=== PATIENT | male | born 1975 | race Caucasian/White ===

== ENCOUNTER 2024-08-30 17:52 | Observation (INO) | payer MEDICARE, MEDICAID, SELFPAY ==
[2024-08-30] VITALS (53 sets, daily range): BP systolic 117–137; BP diastolic 62–89; PULSE 54–85; RESP 9–27; TEMP 36.2–36.4; O2SAT 93–98
--- NOTE | 2024-08-30 17:45 | RT.EKG_ITS ---
APPROVED REPORT Exam: Resting ECG Reason for Exam: CP SOPHIE Patient Location: E HR:67 bpm ECG Measurements Heart Rate 67 AXIS NV 154 P 31 QRSd 105 QRS -41 QT 378 T 28 QTc 400 Conclusion Sinus rhythm...normal P axis, V-rate 60- 99 Left anterior fascicular block...axis(240,-40), init forces inf Left [place] No acute ST changes
--- NOTE | 2024-08-30 17:55 | ED.GENADUL_ITS ---
Discharge Plan Disposition Patient Disposition: Admit to [facility] Condition: Fair Discharge Details Chief Complaint: Chest Pain Clinical Impression: Pancreatitis, acute Primary Care Provider: Unknown,Unknown ED Provider: Mateo Rouse Meds and New Rx's Prescriptions: No Action dextroamphetamine-amphetamine [Adderall XR] 20 mg capsule,extended release 24hr 20 mg PO QAM guanfacine 2 mg tablet 2 mg PO DAILY omeprazole 40 mg capsule,delayed release(DR/EC) 40 mg PO DAILY cholecalciferol (vitamin D3) [Vitamin D3] 50 mcg (2,000 unit) tablet 2,000 unit PO QDAY cyanocobalamin (vitamin B-12) [Vitamin B-12] 100 mcg tablet 100 mcg PO DAILY omega-3 fatty acids Capsule 1,000 mg PO DAILY HPI General Mode of arrival: ambulatory . Date/Time Provider Initiated Documentation: 08/30/24 17:54 . Limitations to Documentation: no limitations . Information obtained by: patient and RN notes reviewed . HPI Narrative: Patient presents to ED complaint of left-sided chest pain and shortness of darcie ath. Patient has been experiencing similar pain on and off for a couple of days but will go away and he thought it was more related to his anxiety. Today he has pretty much had the pain all day long just varying degrees of intensity. He is having some radiation to the left shoulder as well as down into the abdomen. Not really having back pain. He has had some diaphoresis but gets this on a re gular basis anyways. 1 episode of dry heaves today. Denies any leg pain or leg swelling. No history of blood clots. He has previously had high blood pressure but with weight loss he has not had to be on any medications. He does have a family history of early cardiac disease. He stopped smoking over 10 years ago. Pain has been worse this afternoon, a little bit pleuritic in nature, some incr eased shortness of breath which prompted him to come into ED. Related Data Home Medications ?Medication ?Instructions ?Recorded ?Confirmed cholecalciferol (vitamin D3) 50 2,000 unit PO QDAY 08/30/24 08/30/24 mcg (2,000 unit) tablet (Vitamin D3) cyanocobalamin (vitamin B-12) 100 100 mcg PO DAILY 08/30/24 08/30/24 mcg tablet (Vitamin B-12) dextroamphetamine-amphetamine ER 20 mg PO QAM 08/30/24 08/30/24 20 mg 24hr capsule,extend release (Adderall XR) guanfacine 2 mg tablet 2 mg PO DAILY 08/30/24 08/30/24 omega-3 fatty acids 1,000 mg PO DAILY 08/30/24 08/30/24 omeprazole 40 mg capsule,delayed 40 mg PO DAILY 08/30/24 08/30/24 release Allergies Allergy/AdvReac Type Severity Reaction Status Date / Time trazodone AdvReac Intermediate Hives Verified 08/30/24 18:01 Exam Narrative Exam Narrative: Const: Obese male in NAD but does appear uncomfortable. VS per triage. HEENT: NC/AT. Normal facial exam. Neck: Supple. Trachea midline. Lungs: Normal respiratory effort. Lungs are clear. Cor: RRR without murmur. Good radial pulses. GI: Soft/ND/NT. Neuro: A+O x 3. Normal speech, mentation, gait. Cranial nerves II - XII grossly intact. No gross motor or sensory deficit. Ext: No C/C/E. No calf tenderness. Medical Decision Making Patient presents to ED with left-sided chest pain radiating to left shoulder, varying in intensity during the course of the day but worse this afternoon. A little pleuritic in nature. Appears uncomfortable and complains of feeling short of breath. Has had milder symptoms that were intermittent over the last few days that he thought was anxiety related. Denies any fever or cough. Denies any leg pain or leg swelling. EKG from triage is sinus rhythm with left anterior fascicular block no acute ST changes per my read. Patient is overweight and has family history of cardiac disease so must consider ACS. Little bit of pleuritic component to his pain and sensation of shortness of breath so also consider PE. Some radiation of pain into the abdomen and is chest pain is lower left in nature. Consider GI source. IV established and patient placed on monitor. Aspirin and nitroglycerin ordered. Laboratory studies including D-dimer, troponin and lipase ordered in addition to standard CBC and CMP. Patient's laboratory studies with normal white count and hemoglobin. Coags are normal but D-dimer is elevated at 689. Chemistries and kidney function are normal. Liver function is normal. Lipase however is elevated to 282. Initial troponin is normal. On reevaluation patient states he feels a little better but is still having discomfort. Given the elevated lipase consider pancreatitis. Given elevated D-dimer consider PE. Morphine ordered for pain and CTA of chest with CT abdomen pelvis ordered. 08:30 - Patient's repeat troponin remains normal. CT scan of the chest shows no evidence of pulmonary emboli. Incidentally found to have a thyroid nodule which will need follow-up as outpatient. Also found to have a solitary lung nodule. I have made patient aware of both. CT of the abdomen shows no acute process and specifically a normal-appearing pancreas. Patient does report pain is better though still present despite morphine. He is now however quite nauseated and dry heaving. Will dose with ondansetron. Will make him n.p.o. and start IV fluids. I will repeat a third troponin and if negative will plan discussion with hospitalist for admission for acute pancreatitis. I am going to add triglyceride and lipid profile given his pancreatitis. 22:15 - Patient had return of pain and was given more morphine. His third troponin has come back negative. Triglycerides and cholesterol not significantly elevated. Discussed with hospitalist for admission for n.p.o. status, pain control, IV hydration. Lab Data Lab results reviewed: Yes I reviewed the patient's lab results. Lab results narrative: see [facility] ECG Data Attestation: I personally reviewed and interpreted this ECG (s) as follows: Prior ECG tracings: not available for review Interpretation: see EKG/[facility] All Active Problems (Updated 08/30/24 @ 22:23 by Mateo Rouse MD) Pancreatitis, acute (Acute) Medical History (Updated 08/30/24 @ 22:23 by Mateo Rouse MD) ADHD Anxiety Surgical History (Updated 08/30/24 @ 19:01 by Mateo Rouse MD) S/P cholecystectomy H/O shoulder surgery S/P gastric bypass Social History (Updated 08/30/24 @ 19:01 by Mateo Rouse MD) Smoking/Tobacco Use Status: Former Tobacco Use Smoking risk assessment performed?: Yes Alcohol Intake: current Alcohol Intake frequency: holidays/special occasions only Drug use: Never Substance use type: does not use Housing: house Do you feel safe at home: Yes Do you feel safe in your relationship?: Yes Additional Social history: at side, very supportive
[2024-08-30 18:20] LABS: Abs Immature Grans 0.02 10^3/uL (0.0-0.06); Absolute Basophil Count 0.04 10^3/uL (0.0-0.2); Absolute Eosinophil Count 0.26 10^3/uL (0.0-0.7); Absolute Lymphocyte Count 2.23 10^3/uL (1.2-3.4); Absolute Monocyte Count 0.61 10^3/uL (0.1-0.8); Absolute Neutrophil Count 4.82 10^3/uL (1.2-6.7); Basophils % 0.5 %; Eosinophils % 3.3 %; HCT 48.7 % (40.0-50.0); HGB 16.1 g/dL (13.5-17.5); Immature Grans % 0.3 %; Lymphocytes % 27.9 %; MCH 29.5 pg (27.0-33.0); MCHC 33.1 % (32.0-36.0); MCV 89 fL (80-95); MPV 10.4 fL (8.0-11.0); Monocytes % 7.6 %; Neutrophils % 60.4 %; Platelet Count 187 10^3/uL (130-400); RBC 5.46 10^6/uL (4.36-5.78); RDW 13.5 % (11.8-14.1); RDW-SD 43.8 fL; WBC 7.98 10^3/uL (4.4-10.8)
[2024-08-30 18:34] LABS: PTT Activated 27.2 sec (20.6-30.2); Prothrombin Time 10.5 sec (9.1-11.1)
[2024-08-30] MEDS: Aspirin 81 MG CHEW 324 MG CH (18:35)
[2024-08-30 18:38] LABS: ALT 47 U/L (16-63); AST 31 U/L (15-37); Albumin 3.9 g/dL (3.4-5.0); Alkaline Phosphatase 92 U/L (46-116); Anion Gap 5.1 mmol/L (3-11); BUN 10 mg/dL (7-18); Bilirubin, Total 0.6 mg/dL (0.2-1.0); CO2 31.9 mmol/L (21.0-32.0); CREATININE 0.9 mg/dL (0.70-1.30); Calcium 9.3 mg/dL (8.5-10.1); Chloride 106 mmol/L (98-107); Estimated GFR 105.35 (mL/min/1.73m2); Glucose 109 mg/dL (74-106); Lipase 282 U/L (<78); Magnesium 1.8 mg/dL (1.8-2.4); Potassium 4.2 mmol/L (3.5-5.1); Sodium 143 mmol/L (136-145); Total Protein 7.8 g/dL (6.4-8.2); Troponin I 8 ng/L (<or=76)
[2024-08-30 18:45] LABS: D-Dimer 689 ng/mlFEU (<500)
--- NOTE | 2024-08-30 18:45 | DI.CT_ITS ---
Exam(s) CT CHEST PE ABD PELVIS W EXAM: CT CHEST PE ABD PELVIS W CLINICAL HISTORY: CP, Abd Pain, SOB. TECHNIQUE: Imaging Protocol: Axial CT angiography was performed with multi-slice acquisition and mu lti-planar and/or 3D reconstructions. Computer aided detection (CAD) was utilized. CONTRAST MATERIAL: Intravenous: Omnipaque 350contrast volume:100 mL COMPARISON: No exams were available for comparison FINDINGS: CHEST: Tracheobronchial tree: Patent where visualized. No evidence of bronchiectasis. Pulmonary parenchyma: No consolidation or dominant measurable mass. No architectural distortion. Ther e is a 3 mm nodule in the right lower lobe (series 16, image 105). Pulmonary Arteries: No large central pulmonary embolism is present. Mediastinum and Yennifer: No dominant adenopathy or fluid collection. The esophagus is unremarkable. Visualized thyroid gland: Unremarkable. Pleura: No effusion or pneumothorax. Heart: The heart is not dilated. No coronary artery calcifications are seen. No pericardial effusion. Aorta: Thoracic aorta non-dilated. No evidence of dissection. Bones: Within normal limits for the patient's age. Soft tissues: There is bilateral gynecomastia. ABDOMEN: Liver: Normal density. No measurable mass. Portal, Superior Mesenteric, and Splenic Veins: Unremarkable. Gallbladder and Biliary Tract: Status post cholecystectomy. There is no biliary ductal dilatation. Pancreas: Normal density, no abnormal calcifications or inflammatory process. Spleen: Normal. Adrenals: No masses seen. Kidneys: Normal size, contour and axis. There is a 2 mm nonobstructing stone in the lower pole of the left kidney. There are cysts seen in the left kidney. They are simple. No follow-up is recommende d. The largest measures 5.5 cm. Abdominal Aorta: Abdominal portion non-dilated. Mild atherosclerotic calcification is present. Bowel: Mild diverticulosis of the colon. No evidence of acute diverticulitis. No bowel wall thicken ing or obstruction. Postsurgical changes are seen in the stomach. Peritoneal Cavity: No ascites, collection or mesenteric inflammatory response. No free air. Lymph Nodes: Within normal limits. Bones: Within normal limits for the patient's age. Soft Tissues: There are fat containing midline supraumbilical anterior abdominal wall hernias. There also bilateral fat containing inguinal hernias. PELVIS: Bladder: There is a tiny 1-2 mm density in the dependent portion of the urinary bladder which may rep resent a passed stone. The urinary bladder is otherwise unremarkable. Reproductive Organs: Unremarkable as visualized. Lymph Nodes: Within normal limits. Bones: Within normal limits. IMPRESSION: 1. Left nephrolithiasis without hydronephrosis. 2. Question of a tiny 1-2 mm density in the dependent portion of the urinary bladder which may repres ent a passed stone. 3. Colonic diverticulosis without evidence of acute diverticulitis. 4. Multiple fat containing anterior abdominal wall hernias and bilateral fat containing inguinal deangelo ias. 5. 3 mm right lower lobe pulmonary nodule. Solid nodules smaller than 6 mm do not require routine follow-up in all patients with high clinical r isk; however, some nodules smaller than 6 mm with suspicious morphology, upper lobe location, or both may warrant follow-up at 12 months (grade 2A; weak recommendation, high-quality evidence). (Moni et al., 2017) Single solid noncalcified nodules. ???Solid nodules smaller than 6 mm (those 5 mm or smaller) do not require routine follow-up in patients at low risk (grade 1C; strong recommendation, low- or very-low- quality evidence). (Moni et al., 2017) 6. No acute pulmonary process. 7. No evidence of a pulmonary embolism, thoracic aortic aneurysm or dissection within the limits of t he examination. 8. The preliminary [facility] report was reviewed. RADIATION DOSE DELIVERED: 1,656.14mGy.cm Total DLP DATA REPOSITORY: All CT scans at this facility are submitted to the National Radiology Data Registry (NRDR) Dose Index Registry (DIR) with the [employer] (A[employer]). RADIATION OPTIMIZATION: All CT scans at this facility use at least one of these dose optimization te chniques: automated exposure control; mA and/or kV adjustment per patient size (includes targeted exa ms where dose is matched to clinical indication); or iterative reconstruction.
[2024-08-30] MEDS: MORPHine 4 MG/ML SYR IVP (19:13)
[2024-08-30] MEDS: Normal Saline 500 ML IV (19:13)
[2024-08-30] MEDS: Omnipaque 350 MG/ML 100 ML BTL IJ (19:20)
[2024-08-30] MEDS: Normal Saline - Diluent 50 ML VIAL IJ (19:21)
[2024-08-30 19:31] LABS: Troponin I 5 ng/L (<or=76)
--- NOTE | 2024-08-30 20:18 | DI.[facility]_ITS ---
Addendum created by William Montoya DO on 08/30/2024 8:43:29 PM EDT: Noted in body of the report but not included in impression is the presence of asymmetric gynecomastia, greater on the right. Correlate clinically and if indicated with imaging which could include ultrasound annual mammography. Initial report created on 08/30/2024 8:18:14 PM EDT: PROCEDURE INFORMATION: Exam: CTA Chest With Contrast Exam date and time: 08/30/2024 7:22 PM Age: 49 years old Clinical indication: Other: Cp, abd pain, SOB TECHNIQUE: Imaging protocol: Computed tomographic angiography of the chest with contrast. Exam focused on the arteries. 3D rendering (Not supervised by radiologist): MIP and/or 3D reconstructed images were created by the technologist. Contrast material: OMNIPAQUE 350; Contrast volume: 100 ml; Contrast route: INTRAVENOUS (IV); COMPARISON: No relevant prior studies available. FINDINGS: Pulmonary arteries: Main pulmonary artery normal in caliber. No pulmonary artery filling defects. Aorta: No aortic aneurysm or dissection. Thyroid: There is substernal extension of left thyroid lobe and a 3 cm nodule is demonstrated inferiorly in left lobe. Lungs: No parenchymal consolidation. 5 mm nodule in basilar right lower lobe, 16/105 Pleural spaces: Unremarkable. No pneumothorax. No pleural effusion. Heart: Heart is top-normal in size. Heart RV/LV ratio: 0.92. Coronary arteries: No coronary artery calcification. Lymph nodes: Unremarkable. No enlarged lymph nodes. Bones/joints: Prior surgery involving left humeral head.The spine demonstrates mild to moderate degenerative changes at multiple levels. Soft tissues: Asymmetric gynecomastia, more prominent on the right. IMPRESSION: 1. No pulmonary artery embolism demonstrated. 2. 5 mm nodule inferiorly in right lower lobe does not require follow-up unless patient considered at increased risk for developing lung cancer, in which case surveillance CT could be performed in 12 months following 2017 Fleischner criteria. 3. 2 cm nodule in inferior aspect left thyroid lobe. Further evaluation with thyroid ultrasound is warranted. PROCEDURE INFORMATION: Exam: CT Abdomen And Pelvis With Contrast Exam date and time: 08/30/2024 7:22 PM Age: 49 years old Clinical indication: Other: Cp, abd pain, SOB TECHNIQUE: Imaging protocol: Computed tomography of the abdomen and pelvis with contrast. Contrast material: OMNIPAQUE 350; Contrast volume: 100 ml; Contrast route: INTRAVENOUS (IV); COMPARISON: No relevant prior studies available. FINDINGS: Liver: Liver normal in size. No mass. Gallbladder and biliary ducts: Cholecystectomy. No biliary ductal dilatation. Pancreas: Normal. No ductal dilation. Spleen: Normal. No splenomegaly. Adrenal glands: Normal. No mass. Kidneys and ureters: Homogeneous enhancement of renal parenchyma. 5.5 cm simple cyst extends exophytically from the lower pole of left kidney. Stomach and bowel: Prior gastric bypass. No dilated segments of small bowel or colonic dilatation. There are a few, scattered colonic diverticula Appendix: No evidence of appendicitis. Intraperitoneal space: Unremarkable. No free air. No significant fluid collection. Vasculature: No aortic aneurysm or dissection. Lymph nodes: Unremarkable. No enlarged lymph nodes. Urinary bladder: Unremarkable as visualized. Reproductive: Unremarkable as visualized. Bones/joints: Unremarkable. No acute fracture. Soft tissues: There is a fat containing left supraumbilical ventral hernia measuring 8 cm. A right periumbilical fat containing hernia measures just under 5 cm. Moderate size bilateral fat containing inguinal hernias. IMPRESSION: 1. No acute findings. 2. Several nonemergent findings. Dictated and Authenticated by: William Montoya MD. Orderin Nasim Galindo MD
[2024-08-30] MEDS: Ondansetron 4 MG/2 ML VIAL IVP (20:53)
[2024-08-30] MEDS: Lactated Ringers 1,000 ML 125 ML IV (20:53)
[2024-08-30 21:07] LABS: Calculated LDL 99 mg/dL (<100); Cholesterol 178 mg/dL (<200); HDL Cholesterol 57 mg/dL (>or=40); Triglyceride 112 mg/dL (<150)
[2024-08-30 21:45] LABS: Troponin I 7 ng/L (<or=76)
[2024-08-30] MEDS: MORPHine 10 MG/ML VIAL 6 MG IVP (21:50)
--- NOTE | 2024-08-30 22:27 | W.PM.HP.N ---
Date of service: 08/30/24 Time of Service: 22:27 Assessment and Plan Assessment and plan (1) Pancreatitis, acute: Status: Acute Assessment and plan: continue with IVF/pain meds/npo. Lipase ordered for am (2) Anxiety: Assessment and plan: restart home meds when tolerating PO (3) Thyroid nodule: Status: Deleted Assessment and plan: thyroid usn. Will also order tsh/FT4 (4) Left leg pain: Status: Resolved Assessment and plan: rule out dvt with BLE usn, more for completeness (5) S/P gastric bypass: Assessment and plan: add thiamine History of Present Illness History of Present Illness Chief Complaint: chest pain Narrative: 49-year-old gentleman who presented to the ED with left-sided chest pain which then radiated to his right side. Workup in the ED did not show any elevations in his troponins and his EKG was within normal limits. While he was in the ED though, laboratory work was indicative of a possible pancreatitis. Per [place] criteria, he would need an elevation of his lipase greater than 3 times normal, pain consistent with pancreatitis, and imaging indicative of pancreatitis. From what I can tell the patient only has 1 of these but we will admit him nevertheless. Patient states that his pain did improve with morphine. Patient denies significant alcohol use. He does endorse significant weight loss of late. Weight loss has been intentional. Patient states that he had a cardiac workup at [facility] approximately 5 years ago with a stress test as well as an echocardiogram but no cardiac cath. Patient also endorses left lower extremity calf pain. While he was in the ED an elevation in his D-dimer was noted and a CT chest was negative for PE. Other diagnostic values his white count was within normal limits D-dimer as mentioned was 689 glucose was 109 lipase 282 and triglycerides were within normal limits at 112. In terms of imaging chest abdomen and pelvis CT scan showed no PE, it did mention a 5 mm nodule inferior in the right lower lobe. The 2 cm nodule in the inferior aspect of the left thyroid lobe and a recommendation for thyroid ultrasound was noted. A TSH was not ordered. Patient will be admitted at the request of the ED. Review of Systems All systems reviewed & are unremarkable except as noted in HPI and below PFSH All Active Problems (Updated 09/02/24 @ 00:00 by TED FERGUSON) Pancreatitis, acute (Acute) Medical History (Updated 09/02/24 @ 00:00 by TED FERGUSON) ADHD Anxiety Surgical History (Updated 08/30/24 @ 19:01 by Mateo Rouse MD) S/P cholecystectomy H/O shoulder surgery S/P gastric bypass Social History (Updated 08/30/24 @ 19:01 by Mateo Rouse MD) Smoking/Tobacco Use Status: Former Tobacco Use Smoking risk assessment performed?: Yes Alcohol Intake: current Alcohol Intake frequency: holidays/special occasions only Drug use: Never Substance use type: does not use Housing: apartment Do you feel safe at home: Yes Do you feel safe in your relationship?: Yes Additional Social history: at side, very supportive Meds Allergies and Home Medications Allergies Allergy/AdvReac Type Severity Reaction Status Date / Time trazodone AdvReac Intermediate Hives Verified 08/30/24 18:01 Home Medications ?Medication ?Instructions ?Recorded ?Confirmed ?Type cholecalciferol (vitamin D3) 50 2,000 unit PO QDAY 08/30/24 08/30/24 History mcg (2,000 unit) tablet (Vitamin D3) cyanocobalamin (vitamin B-12) 100 100 mcg PO DAILY 08/30/24 08/30/24 History mcg tablet (Vitamin B-12) dextroamphetamine-amphetamine ER 20 mg PO QAM 08/30/24 08/30/24 History 20 mg 24hr capsule,extend release (Adderall XR) guanfacine 2 mg tablet 2 mg PO DAILY 08/30/24 08/30/24 History omega-3 fatty acids 1,000 mg PO DAILY 08/30/24 08/30/24 History omeprazole 40 mg capsule,delayed 40 mg PO DAILY 08/30/24 08/30/24 History release Exam Narrative Exam Narrative: HEENT-NCAT MMM EOMI PERRLA NECK-NO LAD NO JVD CV-RRR NO MRG DISTANT PULM-CTAB NO AMU ABD-SNTNDBSA NO TTP ON MY EXAM EXT-NO CCE BILAT DP/PT INTACT NEURO-NONFOCAL PSYCH-AAOX3 CAN GIVE LINEAR HISTORY Results Labs 08/31/24 06:25 08/31/24 06:25 Labs: Laboratory Results - last 24 hr 08/30/24 08/30/24 08/30/24 18:08 19:06 21:06 WBC 7.98 RBC 5.46 Hgb 16.1 Hct 48.7 MCV 89 MCH 29.5 MCHC 33.1 RDW 13.5 Plt Count 187 MPV 10.4 Immature Gran % 0.3 Neutrophils % 60.4 Lymphocytes % 27.9 Monocytes % 7.6 Eosinophils % 3.3 Basophils % 0.5 Nucleated RBC % 0.0 Absolute Neutrophils 4.82 Absolute Lymphocytes 2.23 Absolute Monocytes 0.61 Absolute Eosinophils 0.26 Absolute Basophils 0.04 PT 10.5 INR 1.0 APTT 27.2 D-Dimer 689 H Sodium 143 Potassium 4.2 Chloride 106 Carbon Dioxide 31.9 Anion Gap 5.1 BUN 10 Creatinine 0.9 Est GFR (CKD-EPI 2020) 105.35 Glucose 109 H Calcium 9.3 Magnesium 1.8 Total Bilirubin 0.6 AST 31 ALT 47 Alkaline Phosphatase 92 Troponin I 8 5 7 Total Protein 7.8 Albumin 3.9 Triglycerides 112 Total Cholesterol 178 LDL Cholesterol, Calc 99 HDL Cholesterol 57 H Lipase 282 H Last Vital Signs Temp 36.4 C L 08/30/24 17:56 Pulse 62 08/30/24 21:40 Resp 12 08/30/24 21:40 BP 120/71 08/30/24 21:31 Pulse Ox 96 08/30/24 21:40 Time Spent Time spent with Patient: <40 minutes Time was spent: preparing to see the patient(eg.review tests), obtaining and/or reviewing separately otained hiistory, ordering medications,tests, procedures, referring, communicating with other health occasional caregiver, indepentently interpreting results, counseling the patient and care coordination
--- NOTE | 2024-08-30 22:46 | W.PC.ACHO ---
Registration Status: Primary Language: Preferred Language: ED Information & Data Chief Complaint Chest Pain 08/30/24 18:14 Chief Complaint Chest Pain 08/30/24 17:56 Triage Note 5/10 CP radiates to left 08/30/24 17:56 shoulder to left neck, started this AM pain has intensified, with SOB. Medical / Surgical History (Last Updated 08/30/24 @ 19:02 by Mateo Rouse MD) ADHD Anxiety (Last Updated 08/30/24 @ 19:01 by Mateo Rouse MD) S/P cholecystectomy H/O shoulder surgery S/P gastric bypass Most Recent Vital Signs Temperature 36.4 C L 08/30/24 17:56 Temperature Source Tympanic 08/30/24 17:56 Pulse 62 08/30/24 21:40 Pulse 63 08/30/24 21:40 Respiratory Rate 12 08/30/24 21:40 Respiratory Effort Normal, Non-Labored, Short of Breath 08/30/24 18:14 Respiratory Depth Normal 08/30/24 18:14 Respiratory Pattern Normal 08/30/24 18:14 Blood Pressure 120/71 08/30/24 21:31 Blood Pressure Mean 84 08/30/24 21:31 Pulse Oximetry 96 08/30/24 21:40 Oxygen Delivery Method Room Air 08/30/24 17:56 Oxygen Flow Rate 0 08/30/24 17:56 Pain Level 6 08/30/24 21:50 Allergies trazodone Adverse Reaction (Intermediate, Verified 08/30/24 18:01) Hives Precautions Isolation Standard precaution 08/30/24 18:14 Active Medications Generic Name Dose Route Start Last Admin Trade Name Deepti PRN Reason Stop Dose Admin Ringer's Solution 1,000 mls @ 125 mls/hr 08/30/24 20:45 08/30/24 20:53 IV 125 mls/hr INFUSION JAMIE Administration Iohexol 100 ml 08/30/24 19:30 08/30/24 19:20 Omnipaque 350 Mg/Ml 100 Ml Btl IJ 09/29/24 23:59 100 ml DIRECTED JAMIE Administration Sodium Chloride 50 ml 08/30/24 19:30 08/30/24 19:21 Normal Saline - Diluent 50 Ml Vial IJ 50 ml .FOR DI USE JAMIE Administration IV IV Catheter Type [Right Peripheral IV Antecubital] IV Catheter Gauge [Right 18 Antecubital] Diet Orders Category Date Time Status npo [Nothing Per Oral] [DIET] Nutrition 08/30/24 Dinner Active Diagnostics 08/30/24 08/30/24 08/30/24 Range/Units 21:06 19:06 18:08 WBC 7.98 (4.4-10.8) 10^3/uL RBC 5.46 (4.36-5.78) 10^6/uL Hgb 16.1 (13.5-17.5) g/dL Hct 48.7 (40.0-50.0) % MCV 89 (80-95) fL MCH 29.5 (27.0-33.0) pg MCHC 33.1 (32.0-36.0) % RDW 13.5 (11.8-14.1) % Plt Count 187 (130-400) 10^3/uL MPV 10.4 (8.0-11.0) fL Immature Gran % 0.3 % Neutrophils % 60.4 % Lymphocytes % 27.9 % Monocytes % 7.6 % Eosinophils % 3.3 % Basophils % 0.5 % Nucleated RBC % 0.0 (0.0-0.3) % Absolute Neutrophils 4.82 (1.2-6.7) 10^3/uL Absolute Lymphocytes 2.23 (1.2-3.4) 10^3/uL Absolute Monocytes 0.61 (0.1-0.8) 10^3/uL Absolute Eosinophils 0.26 (0.0-0.7) 10^3/uL Absolute Basophils 0.04 (0.0-0.2) 10^3/uL PT 10.5 (9.1-11.1) sec INR 1.0 (0.9-1.1) APTT 27.2 (20.6-30.2) sec D-Dimer 689 H (<500) ng/mlFEU Sodium 143 (136-145) mmol/L Potassium 4.2 (3.5-5.1) mmol/L Chloride 106 (98-107) mmol/L Carbon Dioxide 31.9 (21.0-32.0) mmol/L Anion Gap 5.1 (3-11) mmol/L BUN 10 (7-18) mg/dL Creatinine 0.9 (0.70-1.30) mg/dL Est GFR (CKD-EPI 2020) 105.35 (mL/min/1.73m2) Glucose 109 H (74-106) mg/dL Calcium 9.3 (8.5-10.1) mg/dL Magnesium 1.8 (1.8-2.4) mg/dL Total Bilirubin 0.6 (0.2-1.0) mg/dL AST 31 (15-37) U/L ALT 47 (16-63) U/L Alkaline Phosphatase 92 (46-116) U/L Troponin I 7 5 8 (<or=76) ng/L Total Protein 7.8 (6.4-8.2) g/dL Albumin 3.9 (3.4-5.0) g/dL Triglycerides 112 (<150) mg/dL Total Cholesterol 178 (<200) mg/dL LDL Cholesterol, Calc 99 (<100) mg/dL HDL Cholesterol 57 H (>or=40) mg/dL Lipase 282 H (<78) U/L Intake and Output - 24 Hour Total 08/30/24 17:52 thru 08/30/24 20:53 Intake Total 500 Balance 500 Weight 153.133 kg Intake: IV 500 Falls Risk Assessment History of Falls No History 08/30/24 18:14 Contributing Factors No Factors 08/30/24 18:14 Ambulatory Aids Independent 08/30/24 18:14 Tubes/Lines None 08/30/24 18:14 Gait Evaluation No gait disturbance 08/30/24 18:14 Cognition No cognitive impairment 08/30/24 18:14 Fall Total Score 0 08/30/24 18:14 Level of Risk Standard/Low Risk 08/30/24 18:14 Problems (Last Updated 08/30/24 @ 19:02 by Mateo Rouse MD) Left leg pain (Acute) Thyroid nodule (Acute) Pancreatitis, acute (Acute) v v v v v v v v v Sending and/or Receiving Nurses: Please use comment section below to note any information pertinent to the patient hand-off not included above. Information / Comments: Report taken from [facility]OND[facility]ISTORY TEACHERK[facility] [place], Patient is AO x 3. , has history of obesity and sleep apnea., elevated d.dimer. and lipase, will be treated on pancreatitis. Was given MSO4 at 2150 hrs. NPO observed, has IVFluid os LR at 125 infusing now. All questions answered appropriately. Report received from:
[2024-08-30] MEDS: Normal Saline Flush 10 ML SYR IVP (23:28)
[2024-08-30] MEDS: Enoxaparin 40 MG/0.4 ML SYR SC (23:29)
[2024-08-31 03:44] VITALS: BP 104/71; PULSE 67; RESP 19; TEMP 36.4; O2SAT 92
[2024-08-31] MEDS: Acetaminophen 325 MG TAB PO ×2 (03:54→08:30)
[2024-08-31] MEDS: Lactated Ringers 1,000 ML 125 ML IV ×2 (04:15→12:46)
[2024-08-31] MEDS: Ondansetron 4 MG/2 ML VIAL IVP (04:36)
[2024-08-31 06:39] LABS: Abs Immature Grans 0.02 10^3/uL (0.0-0.06); Absolute Basophil Count 0.03 10^3/uL (0.0-0.2); Absolute Eosinophil Count 0.21 10^3/uL (0.0-0.7); Absolute Monocyte Count 0.55 10^3/uL (0.1-0.8); Absolute Neutrophil Count 3.99 10^3/uL (1.2-6.7); Basophils % 0.5 %; Eosinophils % 3.3 %; HCT 42.8 % (40.0-50.0); HGB 14.1 g/dL (13.5-17.5); Immature Grans % 0.3 %; MCH 29.5 pg (27.0-33.0); MCHC 32.9 % (32.0-36.0); MCV 90 fL (80-95); MPV 10.6 fL (8.0-11.0); Monocytes % 8.6 %; Neutrophils % 62.3 %; Platelet Count 151 10^3/uL (130-400); RBC 4.78 10^6/uL (4.36-5.78); RDW 13.3 % (11.8-14.1); RDW-SD 43.9 fL
[2024-08-31 07:01] LABS: ALT 41 U/L (16-63); AST 30 U/L (15-37); Albumin 3.3 g/dL (3.4-5.0); Alkaline Phosphatase 78 U/L (46-116); Anion Gap 7.7 mmol/L (3-11); BUN 11 mg/dL (7-18); Bilirubin, Total 0.8 mg/dL (0.2-1.0); CO2 30.3 mmol/L (21.0-32.0); Calcium 8.6 mg/dL (8.5-10.1); Chloride 106 mmol/L (98-107); Estimated GFR 92.84 (mL/min/1.73m2); Glucose 111 mg/dL (74-106); Potassium 4.1 mmol/L (3.5-5.1); Sodium 144 mmol/L (136-145); Total Protein 6.6 g/dL (6.4-8.2)
[2024-08-31 07:08] LABS: Lipase 34 U/L (<78)
[2024-08-31 07:16] VITALS: BP 121/83; PULSE 65; RESP 17; TEMP 36.7; O2SAT 94
[2024-08-31 07:22] LABS: TSH (W/Ref FT4) 2.49 uIU/mL (0.36-3.74)
[2024-08-31] MEDS: Thiamine 100 MG TAB PO (08:30)
[2024-08-31] MEDS: Normal Saline Flush 10 ML SYR IVP ×2 (08:30→19:55)
--- NOTE | 2024-08-31 09:23 | PDOC.CMIN ---
Date of service: 08/31/24 Time of Service: 09:23 Care Management Initial Assmt Initial Assessment Reason for Hospitalization: Pancreatitis Functional Status/Living Situation Patient Presentation: Joshua was sitting up on the side of his bed visiting with his fiancee when CM met with him. He was very pleasant in interaction and easily engaged with CM. Joshua was admitted into OBS status with possible pancreatitis. He denies abdominal pain, stating it is more like an ache. He has not required any IV pain meds. His lipase is normal and his abdominal CT scan was unrevealing. Joshua went down for an ultrasound this afternoon to rule out a DVt. That too was negative. Joshua's diet was advanced today and, if tolerated, he will likely discharge home tomorrow. Town of Residence: [place] Resides with: Other (roxana?frankie Pearson) Significant Other/Family: Local Employment Status: Retired (was a tire repair mechanic) Instrumental Activities of Daily Living (ADLs): Independent Medications Medication Management: No Issues/Barriers identified Physical Functioning/Mobility Assistive Device: uses a cane on rare occasions Advance Directives Advance Directives: Do you have an Advance Directive: N 08/30/24 22:50 AD On File at [facility]: N 08/30/24 19:48 Date Asked 08/30/24 08/30/24 19:48 AD Date Reviewed 08/30/24 08/30/24 22:50 COLST On File at [facility] COLST Date Scanned Code Status Resuscitation Status Full Code Portal Pt does not currently have a portal and education provided: Yes Insurance Coverage/Financial Issues Insurance: Medicare Medicaid Care Team Visit Care Team Role Provider Type Unknown Unknown Primary Care Provider STAFF PHYSICIAN Krystal Goel Other Providers TEXTILE SCREEN MAKER Deepa Norton Other Providers TEXTILE SCREEN MAKER Danyelle Choudhury Other Providers TEXTILE SCREEN MAKER Sasha Pizano RN Other Providers TEXTILE SCREEN MAKER Isaura Pedro Other Providers TEXTILE SCREEN MAKER Mateo Rouse MD Emergency Provider [facility] STAFF PHYSICIAN Mateo Pedro MD Admit Provider [facility] STAFF PHYSICIAN Attending Provider Discharge Potential Discharge Needs: Other (establish with a PCP) Anticipated Barriers to Discharge: None Identified Patient/Family Education Needs: Review discharge instructions, discuss Ask Me Three Transportation: Private vehicle Plan: Anticipate Joshua will be discharged home with no new services when medically stable. He will follow up with his PCP and plan of care and transport with a friend/family. CM will follow and continue to assess for discharge needs. Social Determinants of Health Screening Social Determinants of health last assessed in clinic: 08/31/24 Will the Patient Participate in the Screening?: Yes Do you worry about having a steady place to live?: yes What is your living situation today?: I have housing today, but am worried about losing it Problems where you live: no known problems In the past 12 months, have you had to go without electric, gas, oil or water in your home?: no 1. Within the past 12 months, we worried whether our food would run out before we got money to buy more.: Never true 2. Within the past 12 months, the food we bought just didn't last and we didn't have money to get more.: Never true Has lack of transportation kept you from medical appointments or from doing things needed for daily living?: no Has anyone in your life made you feel unsafe or unsupported?: no How hard is it for you to pay for the very basics like food, housing, medical care, and heating? Would you say it is:: Not hard at all Do you want help finding or keeping work or a job?: I do not need or want help If for any reason you need help with day-to-day activities such as bathing, preparing meals, shopping, managing finances, etc., do you get the help you need?: I don?t need any help How often do you feel lonely or isolated from those around you?: Sometimes Do you speak a language other than Congolese at home?: No Does the patient want assistance with any of the above?: No Comments: ordered for care mgt consult. Health Related Social Needs Health related social needs: housing instability, housed, with risk of homelessness (Z59.811) and feeling lonely/isolated (Z60.8) Health related social needs details: None reported upon admission. PFSH All Active Problems (Updated 08/31/24 @ 14:37 by Shamir Slater) DVT prophylaxis (Acute) Left leg pain (Acute) Thyroid nodule (Acute) Pancreatitis, acute (Acute) Medical History (Updated 08/31/24 @ 14:37 by Shamir Slater) ADHD Anxiety Surgical History (Updated 08/30/24 @ 19:01 by Mateo Rouse MD) S/P cholecystectomy H/O shoulder surgery S/P gastric bypass Social History (Updated 08/30/24 @ 19:01 by Mateo Rouse MD) Smoking/Tobacco Use Status: Former Tobacco Use Smoking risk assessment performed?: Yes Alcohol Intake: current Alcohol Intake frequency: holidays/special occasions only Drug use: Never Substance use type: does not use Housing: apartment Do you feel safe at home: Yes Do you feel safe in your relationship?: Yes Additional Social history: at side, very supportive
[2024-08-31] MEDS: Enoxaparin 40 MG/0.4 ML SYR SC ×2 (09:26→22:00)
[2024-08-31 12:31] VITALS: BP 133/98; PULSE 61; RESP 18; TEMP 36; O2SAT 95
--- NOTE | 2024-08-31 14:24 | W.PM.PROGNOT ---
Date of Service Date of service: 08/31/24 Time of Service: 14:25 Assessment and Plan Assessment and plan (1) Pancreatitis, acute: Status: Acute Assessment and plan: continue with IVF/pain meds, though pain has improved. Current pain not classic for pancreatitis. Will progress to early po as this does not appear to be severe, low fat diet. Cause of pancreatitis not clear. No recent EtOH (last over ). S/p cholecystectomy, no signs of biliary/pancreatic duct obstruction on CT or labs. No GLP-1 use, or other new medications. No trauma or family history. He is s/p gastric bypass. Adderall has been associated with pancreatitis but rare. Holding this for now. (2) Anxiety: Assessment and plan: restart home meds when tolerating PO (3) Thyroid nodule: Status: Acute Assessment and plan: Final/official read of thyoid on CT was unremarkable. It may be reasonable to clarify with u/s but this is incidental and should be done as outpatient. (4) Left leg pain: Status: Acute Assessment and plan: rule out dvt with BLE u/s, though no longer significant symptoms now. (5) S/P gastric bypass: Assessment and plan: continue supplements (6) DVT prophylaxis: Status: Acute Assessment and plan: enoxaparin Subjective Subjective Patient reports: voiding w/o difficulty; denies bowel movement, diarrhea, nausea, vomiting, shortness of breath or fever Interval history since last seen: Feeling okay. He took some water with acetaminophen this morning and didn't get pain or nausea. He has some intermittent left sided crampy abdominal pain, but not epigastric and no radiation. Hasn't had a BM yet since here. He feels like he could eat something. Exam Narrative Exam Narrative: Gen: Alert and oriented, NAD HEENT: No icterus, MMM CV-RRR NO MRG PULM-CTAB normal effort ABD- +bs, soft, NT/ND, no masses EXT-NO CCE BILAT DP/PT INTACT Objective Last Vital Signs Temp 36.0 C L 08/31/24 12:31 Pulse 61 08/31/24 12:31 Resp 18 08/31/24 12:31 BP 133/98 H 08/31/24 12:31 Pulse Ox 95 08/31/24 12:31 Laboratory Results - last 24 hr 08/30/24 08/30/24 08/30/24 18:08 19:06 21:06 WBC 7.98 RBC 5.46 Hgb 16.1 Hct 48.7 MCV 89 MCH 29.5 MCHC 33.1 RDW 13.5 Plt Count 187 MPV 10.4 Immature Gran % 0.3 Neutrophils % 60.4 Lymphocytes % 27.9 Monocytes % 7.6 Eosinophils % 3.3 Basophils % 0.5 Nucleated RBC % 0.0 Absolute Neutrophils 4.82 Absolute Lymphocytes 2.23 Absolute Monocytes 0.61 Absolute Eosinophils 0.26 Absolute Basophils 0.04 PT 10.5 INR 1.0 APTT 27.2 D-Dimer 689 H Sodium 143 Potassium 4.2 Chloride 106 Carbon Dioxide 31.9 Anion Gap 5.1 BUN 10 Creatinine 0.9 Est GFR (CKD-EPI 2020) 105.35 Glucose 109 H Calcium 9.3 Magnesium 1.8 Total Bilirubin 0.6 AST 31 ALT 47 Alkaline Phosphatase 92 Troponin I 8 5 7 Total Protein 7.8 Albumin 3.9 Triglycerides 112 Total Cholesterol 178 LDL Cholesterol, Calc 99 HDL Cholesterol 57 H Lipase 282 H TSH 08/31/24 06:25 WBC 6.40 RBC 4.78 Hgb 14.1 D Hct 42.8 MCV 90 MCH 29.5 MCHC 32.9 RDW 13.3 Plt Count 151 MPV 10.6 Immature Gran % 0.3 Neutrophils % 62.3 Lymphocytes % 25.0 Monocytes % 8.6 Eosinophils % 3.3 Basophils % 0.5 Nucleated RBC % 0.0 Absolute Neutrophils 3.99 Absolute Lymphocytes 1.60 Absolute Monocytes 0.55 Absolute Eosinophils 0.21 Absolute Basophils 0.03 PT INR APTT D-Dimer Sodium 144 Potassium 4.1 Chloride 106 Carbon Dioxide 30.3 Anion Gap 7.7 BUN 11 Creatinine 1.0 Est GFR (CKD-EPI 2020) 92.84 Glucose 111 H Calcium 8.6 Magnesium Total Bilirubin 0.8 AST 30 ALT 41 Alkaline Phosphatase 78 Troponin I Total Protein 6.6 Albumin 3.3 L Triglycerides Total Cholesterol LDL Cholesterol, Calc HDL Cholesterol Lipase 34 TSH 2.49 Time Spent with Patient Time Spent with Patient: 35-49 minutes Time was spent: preparing to see the patient(eg.review tests), obtaining and/or reviewing separately otained hiistory, ordering medications,tests, procedures, referring, communicating with other health direct care staffer, indepentently interpreting results, counseling the patient and care coordination
--- NOTE | 2024-08-31 14:30 | DI.US_ITS ---
Exam(s) US EXTREMITY VENOUS BI EXAM: US EXTREMITY VENOUS BI CLINICAL HISTORY: leg pain elevated dimer TECHNIQUE: Grayscale, color, and doppler imaging of the deep venous system of both lower extremities was performed. COMPARISON: No exams were available for comparison FINDINGS: There is no evidence of intraluminal thrombus and there is normal compression and augmentation demons trated within the common femoral veins, femoral veins, and popliteal veins of both lower extremities. In the calves the interrogated veins also exhibit normal compression/ augmentation properties. The greater saphenous veins also appear patent as do the saphenofemoral junctions bilaterally.. IMPRESSION: 1. No ultrasound evidence of DVT in either lower extremity. DATA REPOSITORY:
[2024-08-31 15:32] VITALS: BP 128/80; PULSE 62; RESP 16; TEMP 36.7; O2SAT 96
--- NOTE | 2024-08-31 16:26 | PHA.REVIEW2 ---
Pharmacy Admission Review Admission Clinical Review Admission Pharmacy Review: DVT prophylaxis (Acute) Left leg pain (Acute) Thyroid nodule (Acute) Pancreatitis, acute (Acute) trazodone Adverse Reaction (Intermediate, Verified 08/30/24 18:01) Hives Resuscitation Status Full Code Height 6 ft Weight 154.7 kg Pharmacy Admission Review Renal Dosing Renal Dosing: BUN 11 mg/dL (7-18) 08/31/24 06:25 Creatinine 1.0 mg/dL (0.70-1.30) 08/31/24 06:25 Medications needing adjustments: Reviewed List of meds needing interventions: no adjustment needed Anticoagulation Anticoagulation: Hgb 14.1 g/dL (13.5-17.5) D 08/31/24 06:25 Hct 42.8 % (40.0-50.0) 08/31/24 06: Plt Count 151 10^3/uL (130-400) 08/31/24 06: INR 1.0 (0.9-1.1) 08/30/24 18:08 Creatinine 1.0 mg/dL (0.70-1.30) 08/31/24 06:25 DVT Prophylaxis: Reviewed Medications: Enoxaparin Opiate Usage Evaluate Pain Scale/Pains Meds: Reviewed Scheduled Bowel Reg ordered if on Opiates?: Yes Relevant Labs Relevant Labs: Sodium 144 mmol/L (136-145) 08/31/24 06:25 Potassium 4.1 mmol/L (3.5-5.1) 08/31/24 06:25 Chloride 106 mmol/L (98-107) 08/31/24 06:25 Magnesium 1.8 mg/dL (1.8-2.4) 08/30/24 18:08 Cardiac Review Cardiac Review: Troponin I 7 ng/L (<or=76) 08/30/24 21:06 QTc Review QTc: Reviewed List meds needing interventions: MBv=032 IV to PO Switch IV Medications: Reviewed (pt npo; starting a low fat diet today) Home Meds Home Med List reviewed: Reviewed Relevent Home Meds Not ordered & why?: vitamin D; adderall, guanfacine, [place]-3, omeprazole-pt was npo. Can restart if tolerating po's. Current Meds Current Medication Order Review: Reviewed
[2024-08-31 20:09] VITALS: BP 128/95; PULSE 57; RESP 20; TEMP 36.7; O2SAT 96
[2024-08-31 23:23] VITALS: BP 132/82; PULSE 50; RESP 20; TEMP 37; O2SAT 95
[2024-09-01 03:00] VITALS: BP 120/81; PULSE 51; RESP 20; TEMP 36.2; O2SAT 97
[2024-09-01 07:31] VITALS: BP 135/81; PULSE 58; RESP 16; TEMP 36.6; O2SAT 97
--- NOTE | 2024-09-01 08:00 | RT.EKG_ITS ---
APPROVED REPORT Exam: Resting ECG Reason for Exam: chest pain Patient Location: I HR:60 bpm ECG Measurements Heart Rate 60 AXIS PA 175 P 49 QRSd 111 QRS -44 QT 407 T 30 QTc 407 Conclusion Sinus rhythm...normal P axis, V-rate 50- 99 Left anterior fascicular block Late transition
--- NOTE | 2024-09-01 08:47 | NUR.NOTE ---
Entered PT room, he was laying in bed. Asked if an assessment at this time was ok. Responded yes. While listening to PTs lungs he started to c/o of chest pain and dizziness. Nurse walked in and reported this information to her immediately. Nursing Note:
[2024-09-01] MEDS: Thiamine 100 MG TAB PO (08:59)
[2024-09-01] MEDS: Normal Saline Flush 10 ML SYR IVP (09:01)
--- NOTE | 2024-09-01 09:10 | PDOC.CMPRO ---
Date of service: 09/01/24 Time of Service: 09:10 Care Management Progress Note Discharge Potential Discharge Needs: PCP F/U Appt Anticipated Barriers to Discharge: None Identified Patient/Family Education Needs: Review discharge instructions, discuss Ask Me Three Transportation: Private vehicle Plan: Anticipate Joshua will be discharged home with no new services when medically stable. He will follow up with his PCP and plan of care and transport with a friend/family. CM will follow and continue to assess for discharge needs. Social Determinants of Health Screening Social Determinants of health last assessed in clinic: 08/31/24 Will the Patient Participate in the Screening?: Yes Do you worry about having a steady place to live?: yes What is your living situation today?: I have housing today, but am worried about losing it Problems where you live: no known problems In the past 12 months, have you had to go without electric, gas, oil or water in your home?: no Has lack of transportation kept you from medical appointments or from doing things needed for daily living?: no Has anyone in your life made you feel unsafe or unsupported?: no How hard is it for you to pay for the very basics like food, housing, medical care, and heating? Would you say it is:: Not hard at all Do you want help finding or keeping work or a job?: I do not need or want help If for any reason you need help with day-to-day activities such as bathing, preparing meals, shopping, managing finances, etc., do you get the help you need?: I don?t need any help How often do you feel lonely or isolated from those around you?: Sometimes Do you speak a language other than [place]ic at home?: No Does the patient want assistance with any of the above?: No Comments: ordered for care mgt consult. Health Related Social Needs Health related social needs: housing instability, housed, with risk of homelessness (Z59.811) and feeling lonely/isolated (Z60.8) Health related social needs details: None reported upon admission.
[2024-09-01] MEDS: Enoxaparin 40 MG/0.4 ML SYR SC (10:24)
[2024-09-01 11:07] VITALS: BP 140/87; PULSE 66; RESP 16; TEMP 36.2; O2SAT 97
--- NOTE | 2024-09-01 12:23 | DSE_ITS ---
Date of service: 09/01/24 Time of Service: 12:23 DS: Diagnosis Discharge Diagnosis (1) Pancreatitis, acute: Status: Acute (2) Anxiety: (3) Thyroid nodule: Status: Acute (4) Left leg pain: Status: Acute (5) S/P gastric bypass: (6) DVT prophylaxis: Status: Acute Discharge Plan Disposition Patient Disposition: Home Condition: Stable Discharge Details Reason For Visit: Pancreatitis Admit Date/Time: 08/30/24 22:21 Admit Provider: Mateo Pedro Attending Provider: Mateo Pedro Primary Care Provider: Unknown,Unknown Hospital Course Hospital Course: 49-year-old gentleman with history of GERD, ADHD, and class 3 obesity s/p gastric bypass in 2022 presented to the ED with left-sided chest pain which then radiated to his right side. Workup in the ED did not show any elevations in his troponins and his EKG was within normal limits but lipase was elevated 4x ULN and he was diagnosed with pancreatitis. His pain resolved overnight on IV fluids and he progressed to a low fat solid diet without nausea or additional pain. He did have some fleeting chest pain after coughing and gagging 6/6 AM and EKG was repeated and showed no ST changes or significant change from admission EKG. He was discharged with recommendations for low fat diet until seen in follow up. His lipase normalized on repeat. He did not have elevated triglycerides or recent alcohol or abdominal trauma. He had no new medications, and his only medication that could cause pancreatitis was Adderral, though this is rare. He will resume this and monitor symptoms. He did mention taking james extract for gout OTC before this episode. If symptoms of pancreatitis recur in the future this supplement should be considered as a cause. He had a CT chest/abd/pelvis on admission given chest pain and some abdominal discomfort and elevated lipase. He is s/p cholecystectomy. His pancrease looked normal, c/w mild pancreatitis. There was no signs of ductal dilation. There was a possible 1-2mm kidney stone in his bladde. He had multiple fat containing hernias. He had a 3mm nodule in his lung that did no require follow up in lower risk patients. [facility] read suggested a 2cm thyroid nodule but the o fficial was normal thyroid tissue. He had some left leg pain on admission and a mildly elevated d-dimer. Venous ultrasound was negative for DVT. He did not have assymetric swelling or pain in his leg at the time of discharge. PCP follow up: Within two weeks to follow clinically upon resuming his outpatient medications. Home Meds and New Rx's Prescriptions: No Action dextroamphetamine-amphetamine [Adderall XR] 20 mg capsule,extended release 24hr 20 mg PO QAM guanfacine 2 mg tablet 2 mg PO DAILY omeprazole 40 mg capsule,delayed release(DR/EC) 40 mg PO DAILY cholecalciferol (vitamin D3) [Vitamin D3] 50 mcg (2,000 unit) tablet 2,000 unit PO QDAY cyanocobalamin (vitamin B-12) [Vitamin B-12] 100 mcg tablet 100 mcg PO DAILY omega-3 fatty acids Capsule 1,000 mg PO DAILY Discharge Instructions Instructions: Pancreatitis (DC) Additional Instructions: Avoid alcohol and eat a low fat diet until you are evaluated in follow up. If you have pain again when you resume your Adderall or the james extract that you take for gout you should stop these. There is a small risk that they can cause pancreatitis. Stand Alone Forms: Nursing Discharge Form Activity:: Activity as Tolerated Equipment/Supplies:: No Equipment Needed Diet:: low fat Discharge Orders Discharge Orders: Discharge Order (Routine); Ordered 09/01/24 Ordered By: Shamir Slater DS: Summary Time Spent with Patient providing and/or coordinating discharge services: Greater than 30 minutes Status at Discharge Functional status at discharge: independent ambulation Overall status at discharge: patient is back to baseline Mental Status: mental status grossly normal Speech and Movement: speech and movement normal Mood: congruent mood Affect: normal affect Quality:SDOH Health Related Social Needs: Health related social needs housing instability, house d, with risk of homelessness (Z59.811), feeling lonely/isolated (Z60.8) Health related social needs details None reported upon admission. Health related social needs details: None reported upon admission. Exam Narrative Exam Narrative: Gen: Alert and oriented, NAD HEENT: No icterus, MMM CV-RRR NO MRG PULM-CTAB normal effort ABD- +bs, soft, NT/ND, no masses EXT-NO CCE BILAT DP/PT INTACT Psych Mental Status: mental status grossly normal Speech and Movement: speech and movement normal Mood: congruent mood Affect: normal affect DS: Data Vitals/I&O Vitals and I&O: Vital Signs Temperature 36.2 C L 09/01/24 11:07 Temperature Source Temporal Artery Scan 09/01/24 11:07 Pulse 66 09/01/24 11:07 Pulse 63 08/30/24 22:40 Respiratory Rate 16 09/01/24 11:07 Respiratory Effort Normal, Non-Labored 08/30/24 22:58 Respiratory Depth Normal 08/30/24 22:58 Respiratory Pattern Normal 08/30/24 22:58 Blood Pressure 140/87 09/01/24 11:07 Blood Pressure Mean 104 09/01/24 11:07 Pulse Oximetry 97 09/01/24 11:07 Oxygen Delivery Method Room Air 09/01/24 11:07 Oxygen Flow Rate 0 09/01/24 11:07 Pain Level 0 09/01/24 11:07 Comment RN notified 09/01/24 11:07 Intake & Output 08/31/24 09/01/24 09/01/24 23:59 11:59 23:59 Intake Total 1766.666 / 3687.499 986.666 / 986.666 Balance 1766.666 / 3637.499 986.666 / 986.666 Weight 155.9 kg Intake: IV 1766.666 / 3687.499 766.666 / 766.666 Oral 220 / 220 Other: Urine Color Yellow Urine Appearance Clear PFSH All Active Problems (Updated 08/31/24 @ 14:37 by Shamir Slater) DVT prophylaxis (Acute) Left leg pain (Acute) Thyroid nodule (Acute) Pancreatitis, acute (Acute) Medical History (Updated 08/31/24 @ 14:37 by Shamir Slater) ADHD Anxiety Surgical History (Updated 08/30/24 @ 19:01 by Mateo Rouse MD) S/P cholecystectomy H/O shoulder surgery S/P gastric bypass Social History (Updated 08/30/24 @ 19:01 by Mateo Rouse MD) Smoking/Tobacco Use Status: Former Tobacco Use Smoking risk assessment performed?: Yes Alcohol Intake: current Alcohol Intake frequency: holidays/special occasions only Drug use: Never Substance use type: does not use Housing: apartment Do you feel safe at home: Yes Do you feel safe in your relationship?: Yes Additional Social history: at side, very supportive Time Spent with Patient Time Spent with Patient: <45 minutes Time was spent: preparing to see the patient(eg.review tests), obtaining and/or reviewing separately otained hiistory, ordering medications,tests, procedures, referring, communicating with other health healthcare project manager, indepentently interpreting results, counseling the patient and care coordination
--- NOTE | 2024-09-01 13:20 | CMDISCH_ITS ---
Date of service: 09/01/24 Time of Service: 13:20 LACE Index Scoring Tool Questions: Length of Stay (in days): 2 Was the patient admitted via the E.D.?: Yes E.D. Visits: 1 Answers: Total Score: 6 Risk of Readmission: Low Risk Care Management Discharge Plan Reason for Hospitalization: pancreatitis Discharge Plan: Joshua will be discharged home with no new services. He will follow up with his PCP and plan of care and transport with his fianc?e. Patient/Family Education Needs: Review of discharge instructions, limitations, follow up plan and discuss Ask me Three SDOH Health Related Social Needs: Health related social needs housing instability, house d, with risk of homelessness (Z59.811), feeling lonely/isolated (Z60.8) Health related social needs details None reported upon admission. Health related social needs details: None reported upon admission.
== END 2024-09-01 13:04 | disposition home or self-care (01) ==
LOC: ER 22:44 → MS 22:50
PROVIDERS: Admitting Provider Hospitalist; Emergency Provider Emergency Medicine; Responsible Provider Family Medicine; Visit Provider Hospitalist
DX: K85.90 Acute pancreatitis without necrosis or infection, unspecified (principal); F41.9 Anxiety disorder, unspecified; R07.89 Other chest pain; E04.1 Nontoxic single thyroid nodule; M79.605 Pain in left leg; Z98.84 Bariatric surgery status; Z79.899 Other long term (current) drug therapy; R06.02 Shortness of breath; E66.9 Obesity, unspecified; Z68.42 Body mass index [BMI] 45.0-49.9, adult; R79.1 Abnormal coagulation profile; F90.9 Attention-deficit hyperactivity disorder, unspecified type
CPT/HCPCS: 00123; 36415; 71275; 74177; 80053; 80061; 83690; 93005; 96361; 96372; 96374; 96375; 96376; 99285; J1650; 83735; 84443; 84484; 85025; 85379; 85610; 85730; 93010; 93970; 99232; 99239; G0378; J2270; J2405; J3490

== ENCOUNTER 2024-09-12 15:09 | Outpatient (REF) | payer MEDICARE, MEDICAID, SELFPAY ==
[2024-09-12 21:27] LABS: Uric Acid 7.7 mg/dL (3.5-7.2)
== END 2024-09-12 15:10 | disposition home or self-care (01) ==
LOC: NCHCN 15:09
PROVIDERS: PCP Nurse Practitioner Family; Visit Provider Nurse Practitioner Family
DX: Z87.39 Personal history of other diseases of the musculoskeletal system and connective tissue (principal)
CPT/HCPCS: 84550

== ENCOUNTER 2024-09-26 02:24 | Outpatient (CLI) | payer MEDICARE, MEDICAID, SELFPAY ==
--- NOTE | 2024-09-26 | DI.US_ITS ---
Exam(s) US THYROID EXAM: US THYROID CLINICAL HISTORY: THYROID NODULE, E04.1. TECHNIQUE: Ultrasound thyroid performed using standard protocol. COMPARISON: CT CT CHEST PE ABD PELVIS W from 08/30/2024 FINDINGS: ISTHMUS: 14 mm. Nodule measuring 1.5 x 0.7 x 1.6 cm, solid, mildly hypoechoic, smoothly marginated with punctate microcalcifications, TR 5. RIGHT LOBE: Size: 5.2 x 3.0 x 2.7 cm Echogenicity: Diffusely heterogeneous. Vascularity: Normal. Nodules: Multiple small nodules. Largest nodule measures 13 millimeters posteriorly, solid, isoechoic smoothly marginated without echogenic foci, TR 3. LEFT LOBE: Size: 5.8 x 3.8 x 3.1 cm Echogenicity: diffusely heterogeneous. Vascularity: Normal. Nodules: No discrete nodules. OTHER FINDINGS: None. IMPRESSION: Multinodular thyroid. 16 millimeter TR 5 nodule noted in the isthmus. FNA recommended. DATA REPOSITORY:
== END 2024-09-26 02:44 ==
PROVIDERS: PCP Nurse Practitioner Family; Visit Provider Nurse Practitioner Family
DX: E04.2 Nontoxic multinodular goiter (principal)
CPT/HCPCS: 76536

== ENCOUNTER 2025-01-17 10:34 | Outpatient (CLI) | payer MEDICARE, MEDICAID, SELFPAY | END 2025-01-17 10:35 | disposition home or self-care (01) | PROVIDERS: PCP Nurse Practitioner Family; Visit Provider Nurse Practitioner Family | DX: R00.2 Palpitations (principal) | CPT/HCPCS: 93246 ==

== ENCOUNTER 2025-02-08 07:51 | Outpatient (CLI) | payer MEDICARE, MEDICAID, SELFPAY ==
--- NOTE | 2025-02-08 12:40 | W.CARDEVENT ---
Date of service: 02/08/25 Time of Service: 12:41 Cardiac Event Recorder Referring Provider:: Kylee Elkins Indications:: Palpitations Cardiac Event Note: This is a cardiac event monitor. Patient was monitored for 13 days and 7 hours Rhythm throughout was sinus with an average heart rate of 73. Minimum was 42, maximum 151 There were very rare isolated ventricular ectopic beats. There was 1 run of nonsustained ventricular tachycardia 4 beats in duration There were rare isolated atrial premature beats. There was no atrial fibrillation, no high-grade AV block, no pauses greater than 3 seconds. Mobitz 1 second-degree AV block (Wenkebach) was noted during sleep; this is considered a normal finding. Symptoms were reported which had no correlation to any dysrhythmia
== END 2025-02-08 07:52 | disposition home or self-care (01) ==
LOC: CARDOPNVT 07:51
PROVIDERS: PCP Nurse Practitioner Family; Visit Provider Internal Medicine Cardiovascular Disease
DX: R00.2 Palpitations (principal); I47.29 Other ventricular tachycardia
CPT/HCPCS: 93248

== ENCOUNTER 2025-02-14 10:31 | Outpatient (REF) | payer MEDICARE, MEDICAID, SELFPAY ==
[2025-02-14 15:00] LABS: HCT 44.2 % (40.0-50.0); HGB 14.7 g/dL (13.5-17.5); MCH 29.6 pg (27.0-33.0); MCHC 33.3 % (32.0-36.0); MCV 89 fL (80-95); MPV 11.2 fL (8.0-11.0); Platelet Count 180 10^3/uL (130-400); RBC 4.96 10^6/uL (4.36-5.78); RDW 13.7 % (11.8-14.1); RDW-SD 44.6 fL; WBC 6.65 10^3/uL (4.4-10.8)
[2025-02-14 15:56] LABS: TSH (W/Ref FT4) 1.35 uIU/mL (0.55-4.78)
[2025-02-14 15:57] LABS: ALT 32 U/L (10-49); AST 29 U/L (<34); Albumin 4.3 g/dL (3.4-5.0); Alkaline Phosphatase 74 U/L (46-116); Anion Gap 8.5 mmol/L (3-11); BUN 14 mg/dL (9-23); Bilirubin, Total 0.50 mg/dL (0.2-1.2); CO2 29.5 mmol/L (20.0-31.0); Calcium 9.4 mg/dL (8.3-10.6); Chloride 107 mmol/L (98-107); Glucose 98 mg/dL (74-106); Potassium 4.7 mmol/L (3.5-5.1); Sodium 145 mmol/L (136-145); Total Protein 6.7 g/dL (5.7-8.2)
== END 2025-02-14 10:32 | disposition home or self-care (01) ==
LOC: NCHCN 10:31
PROVIDERS: PCP Nurse Practitioner Family; Visit Provider Nurse Practitioner Family
DX: R00.2 Palpitations (principal); E04.1 Nontoxic single thyroid nodule
CPT/HCPCS: 36415; 80053; 85027; 84443